=== PATIENT | male | born 1960 | race Caucasian/White ===

== ENCOUNTER 2019-03-11 17:42 | Emergency (ER) | payer OTHER, SELFPAY ==
[2019-03-11 17:46] VITALS: BP 144/83; PULSE 63; RESP 18; TEMP 36.7; O2SAT 92; BMI 33.2
--- NOTE | 2019-03-11 18:03 | ED.SEIZURE ---
HPI - Seizure <Shanice Matthews MD - Last Filed: 03/12/19 20:07> General Chief Complaint: Seizure Stated Complaint: Seizure, fatigue Time Seen by Provider: 03/11/19 17:45 Source: patient and EMS Mode of arrival: EMS History of Present Illness HPI Narrative: Patient is brought to the emergency department for seizure-like activity witnessed by his family at home. Patient does not have any recollection of the event. He states he did wake up feeling somewhat nauseated and does not remember feeling nauseated yesterday. He denies any recent head injury. he has possibly had 1 other seizure episode many many years ago, but none since. He does not take any medications for seizures. 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 Patient denies any weakness, numbness, or tingling. No vomiting. No fevers or chills. No cough, chest pain, or shortness of breath. No other complaints at this time. Patient's , who witnessed the episode, is EN route to the hospital, according to medics. Related Data Allergies Allergy/AdvReac Type Severity Reaction Status Date / Time No Known Drug Allergies Allergy Verified 03/11/19 17:46 Review of Systems <Shanice Matthews MD - Last Filed: 03/12/19 20:07> Review of Systems ROS Unobtainable: All systems reviewed & are unremarkable except as noted in HPI and below Constitutional Constitutional: Denies chills, Denies fatigue, Denies fever(s), Denies frequent falls, Denies lethargy and Denies weakness Eyes Eyes: Denies change in vision, Denies eye discharge, Denies irritation and Denies loss of vision ENT Ears, Nose, Mouth, and Throat: Denies change in voice, Denies dizziness, Denies neck pain, Denies sore throat and Denies throat swelling Cardiovascular Cardiovascular: Denies chest pain, Denies irregular heart rhythm, Denies lightheadedness, Denies palpitations, Denies dyspnea, Denies dyspnea on exertion and Denies orthopnea Respiratory Respiratory: Denies cough, Denies dyspnea, Denies dyspnea on exertion and Denies wheezing Gastrointestinal Gastrointestinal: Denies abdominal pain, Denies change in bowel habits, Denies diarrhea, Reports nausea and Denies vomiting Genitourinary Genitourinary: Denies hematuria, Denies flank pain, Denies urinary incontinence and Denies urinary urgency Musculoskeletal Musculoskeletal: Denies back pain, Denies muscle weakness, Denies neck pain, Denies numbness and Denies tingling Integumentary/Breasts Skin/Breast: Denies pruritus, Denies erythema, Denies rash and Denies wounds Neurologic Neurologic: Denies behavioral changes, Denies confusion, Denies dizziness, Denies frequent falls, Denies loss of vision, Denies numbness, Denies tingling and Denies weakness Psychiatric Psychiatric: Denies anxiety, Denies behavioral changes, Denies confusion, Denies depression, Denies homicidal ideation and Denies suicidal ideation Endocrine Endocrine: Denies fatigue, Denies flushing and Denies palpitations Hematologic/Lymphatic Hematologic/Lymphatic: Denies easy bruising Allergic/Immunologic Allergic/Immunologic: Denies urticaria, Denies throat swelling and Denies wheezing Patient History <Shanice Matthews MD - Last Filed: 03/12/19 20:07> Medical History Leukemia (Acute) Social History (Updated 03/11/19 @ 18:08 by Shanice Matthews MD) Smoking Status: Unknown if ever smoked Exam <Shanice Matthews MD - Last Filed: 03/12/19 20:07> Initial Vital Signs Initial Vital Signs: Vital Signs Temperature 98.0 F 03/11/19 17:46 Pulse Rate 63 03/11/19 17:46 Respiratory Rate 18 03/11/19 17:46 Blood Pressure 144/83 H 03/11/19 17:46 Pulse Oximetry 92 03/11/19 17:46 Const General: cooperative and well developed Nutritional Appearance: well nourished Orientation: alert, awake, oriented x3 and not confused [facility] Head: normocephalic and atraumatic Ears: external ears normal Nose: external nose normal and No nasal discharge Face and sinus: face symmetric and No dry mucous membranes Mouth: oral mucosae normal and moist mucous membranes Teeth and gingiva: dentition normal Eyes General: appearance normal, both eyes and all related structures Eyelids: eyelids normal Conjunctivae: conjunctivae normal Sclera: sclerae normal Pupils: PERRL EOM: EOM intact bilaterally Neck Neck: normal visual inspection, trachea midline, No lymphadenopathy, No midline deformity and No JVD Lymphatic: No lymphedema Chest Chest: normal inspection of the chest Resp Effort & Inspection: normal respiratory effort, able to speak in complete sentences, no respiratory distress and no use of accessory muscles Auscultation: clear to auscultation bilaterally, no rales, no rhonchi and no wheezes Cardio Rate: regular rate Rhythm: regular rhythm Heart Sounds: no click, no gallops, no murmurs and no rubs Pulses: normal peripheral pulses GI Inspection: non-distended Palpation: soft, no hepatosplenomegaly, No guarding, No pulsatile mass and No tender Auscultation: normal bowel sounds Back/Spine/Pelvis Back: No CVA tenderness Cervical Spine: cervical ROM normal and No pain with cervical ROM Thoracic/Lumbar Spine: thoracic and lumbar spine normal to inspection Skin General: no rashes or lesions noted, No jaundice and No petechiae Neuro General: alert, oriented x3, gait normal and no focal motor deficits Speech: speech normal Extrem General: full ROM, no clubbing, cyanosis or edema, no pedal edema and no calf tenderness Psych Appearance: well kempt Mental Status: mental status grossly normal Attitude: cooperative Thought Content: normal and suicidality Judgment: judgment good <Alberto Callahan DO - Last Filed: 03/11/19 22:53> Initial Vital Signs Initial Vital Signs: Vital Signs Temperature 98.0 F 03/11/19 17:46 Pulse Rate 63 03/11/19 17:46 Respiratory Rate 18 03/11/19 17:46 Blood Pressure 144/83 H 03/11/19 17:46 Pulse Oximetry 92 03/11/19 17:46 Course <Shanice Matthews MD - Last Filed: 03/12/19 20:07> Course Course Narrative: Patient was evaluated by myself upon arrival with the medics. IV was placed and patient was started on IV fluids as well as worked up with CBC, CMP drug screen, alcohol, urinalysis and head CT to evaluate his possible seizure activity. Patient was signed out to Dr. Callahan, pending results of workup. Orders Ordered: Discontinued Medications Sodium Chloride (Normal Saline 0.9%) 1,000 mls @ 1,000 mls/hr IV BOLUS ONE Stop: 03/11/19 19:02 Last Admin: 03/11/19 19:07 Dose: 1,000 mls/hr Documented by: CPRUITT Ondansetron HCl (Zofran) 4 mg IV NOW ONE Stop: 03/11/19 18:04 Last Admin: 03/11/19 19:07 Dose: 4 mg Documented by: ADRY Vital Signs Vital signs: Vital Signs - 8 hr 03/11/19 17:46 03/11/19 18:57 03/11/19 19:59 Temperature 98.0 F Pulse Rate 63 49 L 55 L Respiratory Rate 18 12 18 Blood Pressure 144/83 H Blood Pressure [Right Arm] 157/79 H 166/73 H Pulse Oximetry 92 99 97 03/11/19 20:15 Temperature Pulse Rate 52 L Respiratory Rate 12 Blood Pressure 158/68 H Blood Pressure [Right Arm] Pulse Oximetry 95 <Alberto Callahan DO - Last Filed: 03/11/19 22:53> Orders Ordered: Discontinued Medications Sodium Chloride (Normal Saline 0.9%) 1,000 mls @ 1,000 mls/hr IV BOLUS ONE Stop: 03/11/19 19:02 Last Admin: 03/11/19 19:07 Dose: 1,000 mls/hr Documented by: ADRY Ondansetron HCl (Zofran) 4 mg IV NOW ONE Stop: 03/11/19 18:04 Last Admin: 03/11/19 19:07 Dose: 4 mg Documented by: ADRY Vital Signs Vital signs: Vital Signs - 8 hr 03/11/19 17:46 03/11/19 18:57 03/11/19 19:59 Temperature 98.0 F Pulse Rate 63 49 L 55 L Respiratory Rate 18 12 18 Blood Pressure 144/83 H Blood Pressure [Right Arm] 157/79 H 166/73 H Pulse Oximetry 92 99 97 03/11/19 20:15 Temperature Pulse Rate 52 L Respiratory Rate 12 Blood Pressure 158/68 H Blood Pressure [Right Arm] Pulse Oximetry 95 MDM - Seizure <Shanice Matthews MD - Last Filed: 03/12/19 20:07> Lab Data Result diagrams: 03/11/19 18:14 03/11/19 18:14 Labs: Lab Results 03/11/19 03/11/19 03/11/19 Range/Units 18:14 18:14 18:14 WBC 2.2 L (4.5-11.0) X10^3/uL RBC 3.99 L (4.5-5.9) X10^6/uL Hgb 13.4 L (13.5-17.5) g/dL Hct 39.1 L (41-53) % MCV 98.1 (80-100) fL MCH 33.7 (26-34) PG MCHC 34.3 (30-36) % RDW 15.9 H (11.6-14.8) % Plt Count 46 L (150-400) X10^3/uL Neut % (Auto) Not Reportable Lymph % (Auto) Not Reportable [place] % (Auto) Not Reportable Eos % (Auto) Not Reportable Baso % (Auto) Not Reportable Lymph # (Auto) Not Reportable [place] # (Auto) Not Reportable Baso # (Auto) Not Reportable Total Counted 100 Seg Neutrophils % 66.0 (38-70) % Band Neutrophils % 2.0 L (3-7) % Lymphocytes % (Manual) 20.0 L (25-45) % Atypical Lymphs % 4.0 H ( - 0) % Monocytes % (Manual) 8.0 (2-11) % Neutrophils # (Manual) 1496 L (7330-6557) /uL Platelet Estimate Decreased on smear RBC Morphology Normal morphology PT 12.0 (10.1-12.7) SECONDS INR 1.0 (0.9-1.3) Sodium 136 L (137-145) mmol/L Potassium 5.0 (3.4-5.1) mmol/L Chloride 97 L (98-107) mmol/L Carbon Dioxide 29 (22-32) mmol/L BUN 16 (9-20) mg/dL Creatinine 1.00 (0.66-1.25) mg/dL Estimated GFR > 60.0 (>60) mL/min BUN/Creatinine Ratio 16.0 (6-22) Glucose 98 (70-100) mg/dL Calcium 9.5 (8.4-10.2) mg/dL Total Bilirubin 1.8 H (0.2-1.3) mg/dL AST 29 (17-59) IU/L ALT 21 (<50) IU/L Alkaline Phosphatase 92 (38-126) U/L Total Protein 6.7 (6.3-8.2) g/dL Albumin 4.6 (3.5-5.0) g/dL Globulin 2.1 (1.7-4.1) g/dL Albumin/Globulin Ratio 2.2 (1.0-2.8) Prolactin (3.7-17.9) ng/mL Urine Color Urine Appearance Urine pH (4.5-8.0) Ur Specific [place] (1.000-1.035) Urine Protein (Negative) Urine Glucose (UA) (Negative) g/dL Urine Ketones (NEGATIVE) Urine Occult Blood (Negative) Urine Nitrate (Negative) Urine Bilirubin (NEGATIVE) Urine Urobilinogen (0.2) E.U./dL Ur Leukocyte Esterase (NEGATIVE) Urine RBC (0-5/HPF) Urine WBC (0-5/HPF) Urine Bacteria (None) Ur Culture Indicated? U Morph 300 ng/mL cutoff (Negative) Ur Oxycodone Screen (Negative) Urine Methadone Screen (Negative) Ur Barbiturates Screen (Negative) U Tricyclic Antidepress (Negative) Ur Phencyclidine Scrn (Negative) Ur Amphetamines Screen (Negative) U Methamphetamines Scrn (Negative) Ur MDMA Scrn (Ecstasy) (Negative) U Benzodiazepines Scrn (Negative) Urine Cocaine Screen (Negative) U Marijuana (THC) Screen (Negative) 03/11/19 03/11/19 03/11/19 Range/Units 18:14 19:01 19:01 WBC (4.5-11.0) X10^3/uL RBC (4.5-5.9) X10^6/uL Hgb (13.5-17.5) g/dL Hct (41-53) % MCV (80-100) fL MCH (26-34) PG MCHC (30-36) % RDW (11.6-14.8) % Plt Count (150-400) X10^3/uL Neut % (Auto) Lymph % (Auto) [place] % (Auto) Eos % (Auto) Baso % (Auto) Lymph # (Auto) [place] # (Auto) Baso # (Auto) Total Counted Seg Neutrophils % (38-70) % Band Neutrophils % (3-7) % Lymphocytes % (Manual) (25-45) % Atypical Lymphs % ( - 0) % Monocytes % (Manual) (2-11) % Neutrophils # (Manual) (0491-5474) /uL Platelet Estimate RBC Morphology PT (10.1-12.7) SECONDS INR (0.9-1.3) Sodium (137-145) mmol/L Potassium (3.4-5.1) mmol/L Chloride (98-107) mmol/L Carbon Dioxide (22-32) mmol/L BUN (9-20) mg/dL Creatinine (0.66-1.25) mg/dL Estimated GFR (>60) mL/min BUN/Creatinine Ratio (6-22) Glucose (70-100) mg/dL Calcium (8.4-10.2) mg/dL Total Bilirubin (0.2-1.3) mg/dL AST (17-59) IU/L ALT (<50) IU/L Alkaline Phosphatase (38-126) U/L Total Protein (6.3-8.2) g/dL Albumin (3.5-5.0) g/dL Globulin (1.7-4.1) g/dL Albumin/Globulin Ratio (1.0-2.8) Prolactin 26.9 H (3.7-17.9) ng/mL Urine Color Yellow Urine Appearance Clear Urine pH 6.5 (4.5-8.0) Ur Specific [place] 1.015 (1.000-1.035) Urine Protein 1+ H (Negative) Urine Glucose (UA) Negative (Negative) g/dL Urine Ketones Negative (NEGATIVE) Urine Occult Blood Trace-lysed (Negative) Urine Nitrate Negative (Negative) Urine Bilirubin Negative (NEGATIVE) Urine Urobilinogen 0.2 (0.2) E.U./dL Ur Leukocyte Esterase Negative (NEGATIVE) Urine RBC None seen (0-5/HPF) Urine WBC 0-1/hpf (0-5/HPF) Urine Bacteria None seen (None) Ur Culture Indicated? Cult not indicated U Morph 300 ng/mL cutoff Positive H (Negative) Ur Oxycodone Screen Positive H (Negative) Urine Methadone Screen Negative (Negative) Ur Barbiturates Screen Negative (Negative) U Tricyclic Antidepress Negative (Negative) Ur Phencyclidine Scrn Negative (Negative) Ur Amphetamines Screen Negative (Negative) U Methamphetamines Scrn Negative (Negative) Ur MDMA Scrn (Ecstasy) Negative (Negative) U Benzodiazepines Scrn Negative (Negative) Urine Cocaine Screen Negative (Negative) U Marijuana (THC) Screen Negative (Negative) Point of Care Testing Glucose POC 116 <Alberto Lanker, DO - Last Filed: 03/11/19 22:53> Lab Data Attestation: I reviewed the patient's lab results. Labs: Lab Results 03/11/19 03/11/19 03/11/19 Range/Units 18:14 18:14 18:14 WBC 2.2 L (4.5-11.0) X10^3/uL RBC 3.99 L (4.5-5.9) X10^6/uL Hgb 13.4 L (13.5-17.5) g/dL Hct 39.1 L (41-53) % MCV 98.1 (80-100) fL MCH 33.7 (26-34) PG MCHC 34.3 (30-36) % RDW 15.9 H (11.6-14.8) % Plt Count 46 L (150-400) X10^3/uL Neut % (Auto) Not Reportable Lymph % (Auto) Not Reportable [place] % (Auto) Not Reportable Eos % (Auto) Not Reportable Baso % (Auto) Not Reportable Lymph # (Auto) Not Reportable [place] # (Auto) Not Reportable Baso # (Auto) Not Reportable Total Counted 100 Seg Neutrophils % 66.0 (38-70) % Band Neutrophils % 2.0 L (3-7) % Lymphocytes % (Manual) 20.0 L (25-45) % Atypical Lymphs % 4.0 H ( - 0) % Monocytes % (Manual) 8.0 (2-11) % Neutrophils # (Manual) 1496 L (7912-1631) /uL Platelet Estimate Decreased on smear RBC Morphology Normal morphology PT 12.0 (10.1-12.7) SECONDS INR 1.0 (0.9-1.3) Sodium 136 L (137-145) mmol/L Potassium 5.0 (3.4-5.1) mmol/L Chloride 97 L (98-107) mmol/L Carbon Dioxide 29 (22-32) mmol/L BUN 16 (9-20) mg/dL Creatinine 1.00 (0.66-1.25) mg/dL Estimated GFR > 60.0 (>60) mL/min BUN/Creatinine Ratio 16.0 (6-22) Glucose 98 (70-100) mg/dL Calcium 9.5 (8.4-10.2) mg/dL Total Bilirubin 1.8 H (0.2-1.3) mg/dL AST 29 (17-59) IU/L ALT 21 (<50) IU/L Alkaline Phosphatase 92 (38-126) U/L Total Protein 6.7 (6.3-8.2) g/dL Albumin 4.6 (3.5-5.0) g/dL Globulin 2.1 (1.7-4.1) g/dL Albumin/Globulin Ratio 2.2 (1.0-2.8) Prolactin (3.7-17.9) ng/mL Urine Color Urine Appearance Urine pH (4.5-8.0) Ur Specific [place] (1.000-1.035) Urine Protein (Negative) Urine Glucose (UA) (Negative) g/dL Urine Ketones (NEGATIVE) Urine Occult Blood (Negative) Urine Nitrate (Negative) Urine Bilirubin (NEGATIVE) Urine Urobilinogen (0.2) E.U./dL Ur Leukocyte Esterase (NEGATIVE) Urine RBC (0-5/HPF) Urine WBC (0-5/HPF) Urine Bacteria (None) Ur Culture Indicated? U Morph 300 ng/mL cutoff (Negative) Ur Oxycodone Screen (Negative) Urine Methadone Screen (Negative) Ur Barbiturates Screen (Negative) U Tricyclic Antidepress (Negative) Ur Phencyclidine Scrn (Negative) Ur Amphetamines Screen (Negative) U Methamphetamines Scrn (Negative) Ur MDMA Scrn (Ecstasy) (Negative) U Benzodiazepines Scrn (Negative) Urine Cocaine Screen (Negative) U Marijuana (THC) Screen (Negative) 03/11/19 03/11/19 03/11/19 Range/Units 18:14 19:01 19:01 WBC (4.5-11.0) X10^3/uL RBC (4.5-5.9) X10^6/uL Hgb (13.5-17.5) g/dL Hct (41-53) % MCV (80-100) fL MCH (26-34) PG MCHC (30-36) % RDW (11.6-14.8) % Plt Count (150-400) X10^3/uL Neut % (Auto) Lymph % (Auto) [place] % (Auto) Eos % (Auto) Baso % (Auto) Lymph # (Auto) [place] # (Auto) Baso # (Auto) Total Counted Seg Neutrophils % (38-70) % Band Neutrophils % (3-7) % Lymphocytes % (Manual) (25-45) % Atypical Lymphs % ( - 0) % Monocytes % (Manual) (2-11) % Neutrophils # (Manual) (1884-9375) /uL Platelet Estimate RBC Morphology PT (10.1-12.7) SECONDS INR (0.9-1.3) Sodium (137-145) mmol/L Potassium (3.4-5.1) mmol/L Chloride (98-107) mmol/L Carbon Dioxide (22-32) mmol/L BUN (9-20) mg/dL Creatinine (0.66-1.25) mg/dL Estimated GFR (>60) mL/min BUN/Creatinine Ratio (6-22) Glucose (70-100) mg/dL Calcium (8.4-10.2) mg/dL Total Bilirubin (0.2-1.3) mg/dL AST (17-59) IU/L ALT (<50) IU/L Alkaline Phosphatase (38-126) U/L Total Protein (6.3-8.2) g/dL Albumin (3.5-5.0) g/dL Globulin (1.7-4.1) g/dL Albumin/Globulin Ratio (1.0-2.8) Prolactin 26.9 H (3.7-17.9) ng/mL Urine Color Yellow Urine Appearance Clear Urine pH 6.5 (4.5-8.0) Ur Specific [place] 1.015 (1.000-1.035) Urine Protein 1+ H (Negative) Urine Glucose (UA) Negative (Negative) g/dL Urine Ketones Negative (NEGATIVE) Urine Occult Blood Trace-lysed (Negative) Urine Nitrate Negative (Negative) Urine Bilirubin Negative (NEGATIVE) Urine Urobilinogen 0.2 (0.2) E.U./dL Ur Leukocyte Esterase Negative (NEGATIVE) Urine RBC None seen (0-5/HPF) Urine WBC 0-1/hpf (0-5/HPF) Urine Bacteria None seen (None) Ur Culture Indicated? Cult not indicated U Morph 300 ng/mL cutoff Positive H (Negative) Ur Oxycodone Screen Positive H (Negative) Urine Methadone Screen Negative (Negative) Ur Barbiturates Screen Negative (Negative) U Tricyclic Antidepress Negative (Negative) Ur Phencyclidine Scrn Negative (Negative) Ur Amphetamines Screen Negative (Negative) U Methamphetamines Scrn Negative (Negative) Ur MDMA Scrn (Ecstasy) Negative (Negative) U Benzodiazepines Scrn Negative (Negative) Urine Cocaine Screen Negative (Negative) U Marijuana (THC) Screen Negative (Negative) Point of Care Testing Glucose POC [address] scan - head: Radiologist's impression: [address] [address] [address] Scan Report Signed Patient: Tamir Nowak LMR#: [id number] : 1960Acct:[id number] Age/Sex: 58 / MDate of Service: 03/11/19 Loc: ED Accession Number: [id number] Procedure: CT head/brain wo con Ordering Provider: Shanice Matthews MD PROCEDURE: CT HEAD/BRAIN WO CON INDICATIONS: seizure TECHNIQUE: Noncontrast 4.5 mm thick angled axial sections acquired from the foramen magnum to the vertex, with coronal and sagittal reformats. For radiation dose reduction, the following was used: automated exposure control, adjustment of mA and/or kV according to patient size. COMPARISON: None. FINDINGS: Image quality: Excellent. CSF spaces: Basal cisterns are patent. No extra-axial fluid collections. Ventricles are normal in size and shape. Brain: No midline shift. No intracranial masses or hemorrhage. [place]-white matter interface is normal. Skull and face: Calvarium and visualized facial bones are intact, without suspicious lesions. Sinuses: Visualized sinuses and mastoids are clear. IMPRESSION: 1. No acute intracranial process. Dictated by: Nataly Lopez M.D. on 03/11/2019 at 18:40 Approved by: Nataly Lopez M.D. on 03/11/2019 at 18:41 [facility] Narrative Medical decision making narrative: Received turned over. Review patient's history and physical. Perform my own independent exam. Patient's history and physical is consistent with a seizure. He was postictal afterwards. Patient states that when he arrived here he noticed that he had urinated on himself. He did not bite his tongue. His workup here in the emergency department unremarkable. I do have low suspicion that his symptoms today were caused by any of the prior infections that he is having. It sounds like he potentially has had a seizure about 10 years ago. Has never had any workup. Unsure what prompted the seizure activity today. Patient states that just prior he felt very nauseous and received some nausea medication from his . I did inform him that he cannot drive until he is cleared by his primary doctor or neurology. He was instructed to contact his primary doctor to discuss referral to see neurology. Will hold on starting any anti seizure medications today. He was given return precautions and follow-up instructions. He expressed understanding and agreement with plan. Discharge Plan Departure Patient Disposition: Home Clinical Impression: Seizure-like activity Discharge Date/Time: 03/11/19 20:15 Instructions: DI for Seizure Disorder -- Adult Activity Restrictions/Additional Instructions: No driving until your cleared by your primary doctor or a neurologist. Tomorrow contact your primary doctor to get a referral to see a neurologist to discuss the indications for an EEG. Continue all of your medications as directed. Return to the emergency department for any new or worsening symptoms Referrals: Johnny Varela [Primary Care Provider] -
[2019-03-11 18:27] LABS: Hematocrit 39.1 % (41-53); Hemoglobin 13.4 g/dL (13.5-17.5); Mean Corpuscular HGB Conc 34.3 % (30-36); Mean Corpuscular Hemoglobin 33.7 PG (26-34); Mean Corpuscular Volume 98.1 fL (80-100); Platelet Count 46 X10^3/uL (150-400); Red Blood Cell Count 3.99 X10^6/uL (4.5-5.9); Red Cell Distribution Width 15.9 % (11.6-14.8); White Blood Cell Count 2.2 X10^3/uL (4.5-11.0)
[2019-03-11 18:31] LABS: Add Manual Diff / Slide Review YES
[2019-03-11 18:36] LABS: Alanine Aminotransferase 21 IU/L (<50); Albumin 4.6 g/dL (3.5-5.0); Albumin Globulin Ratio 2.2 (1.0-2.8); Alkaline Phosphatase 92 U/L (38-126); Aspartate Aminotransferase 29 IU/L (17-59); Bilirubin Total 1.8 mg/dL (0.2-1.3); Blood Urea Nitrogen 16 mg/dL (9-20); Calcium 9.5 mg/dL (8.4-10.2); Carbon Dioxide 29 mmol/L (22-32); Chloride 97 mmol/L (98-107); Estimated Glomerular Filt Rate > 60.0 mL/min (>60); Globulin 2.1 g/dL (1.7-4.1); Glucose 98 mg/dL (70-100); HEMOLYSIS < 15 (0-50); Sodium 136 mmol/L (137-145); Total Protein 6.7 g/dL (6.3-8.2)
[2019-03-11 18:57] VITALS: BP 157/79; PULSE 49; RESP 12; O2SAT 99
[2019-03-11 19:02] LABS: Bacteria Urine None Seen; RBC Urine None Seen (0-5/HPF)
[2019-03-11 19:05] LABS: Appearance Urine UA CLEAR; Bilirubin Urine UA NEGATIVE (NEGATIVE); Color Urine UA YELLOW; Glucose Urine UA NEGATIVE (Negative); Ketones Urine UA NEGATIVE (NEGATIVE); Leukocyte Esterase Urine UA NEGATIVE (NEGATIVE); Nitrite Urine UA NEGATIVE (Negative); Occult Blood Urine UA TRACE-LYSED (Negative); Protein Urine UA 1+ (Negative); Specific Gravity Urine UA 1.015 (1.000-1.035); Urobilinogen Urine UA 0.2 E.U./dL (0.2); pH Urine UA 6.5 (4.5-8.0)
[2019-03-11] MEDS: SODIUM CHLORIDE 0.9% 1,000 ML 1000 ML IV (19:07)
[2019-03-11] MEDS: ONDANSETRON 4 MG/2 ML INJ IV (19:07)
[2019-03-11 19:10] LABS: UR Morphine/Opiate cutoff 300 Positive (Negative); Ur Creatinine 50 (Normal); Ur Specific Gravity 1.015 (Normal); Urine Amphetamines Negative (Negative); Urine Barbiturates Negative (Negative); Urine Benzodiazepines Negative (Negative); Urine Cocaine Negative (Negative); Urine MDMA Negative (Negative); Urine Methadone Negative (Negative); Urine Methamphetamines Negative (Negative); Urine Oxycodone Positive (Negative); Urine Phencyclidine Negative (Negative); Urine Tetrahydrocannabinol Negative (Negative); Urine Tricyclic Antidepressant Negative (Negative); Urine pH 7 (Normal)
[2019-03-11 19:13] LABS: Neutrophils Absolute Manual 1496 /uL (3000-5900); Platelet Estimate Decreased on smear; RBC Morphology Normal Morphology; Total Cells Counted 100
[2019-03-11 19:26] LABS: Culture Indicated Urine Cult Not Indicated; WBC Urine 0-1/HPF (0-5/HPF)
[2019-03-11 19:27] LABS: Prolactin 26.9 ng/mL (3.7-17.9)
[2019-03-11 19:59] VITALS: BP 166/73; PULSE 55; RESP 18; O2SAT 97
[2019-03-11 20:15] VITALS: BP 158/68; PULSE 52; RESP 12; O2SAT 95
--- NOTE | 2019-06-08 15:46 | PC.NURSE ---
late entry, per [facility], patient's IVF of NS stopped at 2004 with 1000ml infused
== END 2019-03-11 20:15 | disposition home or self-care (01) ==
PROVIDERS: Emergency Medicine; Emergency Provider Emergency Medicine; PCP Physician Assistant Medical
DX: R56.9 Unspecified convulsions (principal); R79.89 Other specified abnormal findings of blood chemistry
CPT/HCPCS: 70450; 80053; 80305; 81001; 84146; 85025; 85610; 96361; 96374; 99282; 99284; J2405

== ENCOUNTER 2021-06-01 18:59 | Emergency (ER) | payer OTHER, SELFPAY ==
[2021-06-01 19:00] VITALS: BP 163/87; PULSE 85; RESP 14; TEMP 36.9; O2SAT 99; BMI 33.2
--- NOTE | 2021-06-01 21:22 | PC.NURSE ---
Pt asked to speak to nurse at registration. Very upset about wait. Discussed triage and that there is no list in order. He states he was told he was going to be seen within 60 min by triage nurse. I told him that I had been present during his triage and that he was told that we took people in order of triage / need. He became more upset. I again reinforced that he would be seen but that we had to take care of the most ill pt first. he went back to wait in his car.
--- NOTE | 2021-06-01 21:56 | PC.NURSE ---
right ear infection since 05/19/21 on abx no relief, pt reports new bleeding onset today
[2021-06-02] VITALS (9 sets, daily range): BP systolic 146–210; BP diastolic 78–97; PULSE 51–70; RESP 18–20; O2SAT 92–99
[2021-06-02] MEDS: ACETAMINOPHEN 325 MG TABLET 650 MG PO (00:26)
--- NOTE | 2021-06-02 01:03 | ED_ITS ---
HPI - Ear Problem <Karine Slater DO - Last Filed: 06/03/21 04:11> General Chief complaint: Ear Stated complaint: RT EAR INFECTION PAIN BLEEDING Time Seen by Provider: 06/02/21 01:02 Source: patient Mode of arrival: Ambulatory Limitations: no limitations History of Present Illness HPI Narrative: This is a 61-year-old male comes emergency department complaint of right ear infection. Patient states he started having symptoms around May 21. He is unsure of the name of the 1st antibiotic ear drop he was given. He thinks it may have been Polytrim. Patient was then seen locally on the he was started on Augmentin and then had a Floxin ear drops added. He has not had any improvement since then. He noted some blood today after using a heat pack against the ear. He has had persistent pain. He states he has a history of leukemia he is on amoxicillin daily secondary to what he describes is likely an aortitis and had prior aortic stent and patch to that area. 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 Patient states he is concerned as he has not had any improvement or in his infection or pain since the 21 of May because of this past history. He follows with Dr. Multani with oncology in [facility]. Dr. Phoenix is his primary care physician. He denies any drug allergies. Patient is also quite frustrated that he has not been given stronger pain medications he was given Percocet which he states was not helpful. He normally takes oxycodone daily and extended release morphine for chronic pain. Related Data Allergies Allergy/AdvReac Type Severity Reaction Status Date / Time No Known Drug Allergies Allergy Verified 06/01/21 19:21 Review of Systems <Karine Slater DO - Last Filed: 06/03/21 04:11> Review of Systems ROS Unobtainable: All systems reviewed & are unremarkable except as noted in HPI and below Patient History <Karine Slater DO - Last Filed: 06/03/21 04:11> Medical History (Updated 06/02/21 @ 06:19 by Karine Slater DO) Leukemia Social History Smoking Status: Unknown if ever smoked Smoking Status: Unknown if ever smoked Substance Use Type: does not use Exam <Karine Slater DO - Last Filed: 06/03/21 04:11> Narrative Exam Narrative: GEN: well nourished, well appearing male, alert and oriented x 3, patient appears to be in mild distress. HEENT: Atraumatic, pupils are equal round reactive to light, extraocular movements are intact, nares are clear, left TM is clear with no fluid, retracted with scarring consistent with prior infection, I am unable to visualize the right TM there is swelling of the canal that is erythematous, the in itself is not swollen, patient has mild tenderness at the tragus but not of the ear itself. He has mild swelling of the right cheek. No submandibular or anterior chain lymphadenopathy per appreciated. No conjunctival pallor. Throat is clear without any exudates, erythema, tonsillar enlargement or uvular deviation HEART: Regular rate and rhythm without murmur, clicks, rubs. LUNGS:Lungs clear to auscultation, no wheezes, rales, crackles, chest moves symmetrically ABD:bowel sounds normal, soft, non-tender, no guarding, rebound, rigidity, no masses noted, no hepatosplenomegaly MSCL: Non-tender, no muscle atrophy, muscles strength 5/5 upper and lower extremities, full range of motion, normal gait NEURO:CN 2-12 intact, sensation normal. SKIN: No erythema, or other rashes noted. Initial Vital Signs Initial Vital Signs: Vital Signs Temperature 98.4 F 06/01/21 19:00 Pulse Rate 85 06/01/21 19:00 Respiratory Rate 14 06/01/21 19:00 Blood Pressure 163/87 H 06/01/21 19:00 Pulse Oximetry 99 06/01/21 19:00 <Will Caballero DO - Last Filed: 06/02/21 19:08> Initial Vital Signs Initial Vital Signs: Vital Signs Temperature 98.4 F 06/01/21 19:00 Pulse Rate 85 06/01/21 19:00 Respiratory Rate 14 06/01/21 19:00 Blood Pressure 163/87 H 06/01/21 19:00 Pulse Oximetry 99 06/01/21 19:00 Course <Karine Slater DO - Last Filed: 06/03/21 04:11> Orders Ordered: Discontinued Medications Acetaminophen (Acetaminophen 325 Mg Tablet) 650 mg PO NOW ONE Stop: 06/02/21 00:19 Last Admin: 06/02/21 00:26 Dose: 650 mg Documented by: CHAZ Hydromorphone HCl (Hydromorphone 1 Mg Inj) 1 mg IV NOW ONE Stop: 06/02/21 02:41 Last Admin: 06/02/21 02:54 Dose: 1 mg Documented by: ROSA MARIA Hydromorphone HCl (Hydromorphone 1 Mg Inj) 1 mg IV NOW ONE Stop: 06/02/21 04:57 Last Admin: 06/02/21 05:01 Dose: 1 mg Documented by: SIMEON Hydromorphone HCl (Hydromorphone 1 Mg Inj) 1 mg IV NOW ONE Stop: 06/02/21 07:59 Last Admin: 06/02/21 08:02 Dose: 1 mg Documented by: JASPREET Cefepime HCl 2 gm/ Sodium (Chloride) 100 mls @ 200 mls/hr IV NOW ONE Stop: 06/02/21 01:37 Last Infusion: 06/02/21 02:35 Dose: 0 mls/hr Documented by: ROSA MARIA Admin: 06/02/21 01:45 Dose: 200 mls/hr Documented by: ROSA MARIA Ciprofloxacin (Cipro) 400 mg in 200 mls @ 200 mls/hr IV NOW ONE Stop: 06/02/21 07:56 Last Infusion: 06/02/21 08:45 Dose: 0 mls/hr Documented by: Admin: 06/02/21 07:49 Dose: 200 mls/hr Documented by: JASPREET Ketorolac Tromethamine (Ketorolac 30 Mg/Ml Vial) 30 mg IV NOW ONE Stop: 06/02/21 03:36 Last Admin: 06/02/21 03:43 Dose: 30 mg Documented by: SIMEON Morphine Sulfate (Morphine 4 Mg/Ml Inj) 4 mg IV NOW ONE Stop: 06/02/21 01:31 Last Admin: 06/02/21 01:45 Dose: 4 mg Documented by: ROSA MARIA Reevaluation(s) Reevaluation #1: Patient updated of CT findings and preference for ENT to see patient for final decision. Patient is frustrated by long stay but agreeable at this time. Toradol was helpful for pain but cannot be repeated yet. Consultations Consultation #1: Dr. Harsh Miles, recomends Dr. Centeno to see in the ED this morning. Likely after 630am/7am for decision to admit vs. transfer. Awaiting callback from Dr. Centeno regarding plan to be seen today. Vital Signs Vital signs: Vital Signs - 8 hr 06/01/21 19:00 Temperature 98.4 F Pulse Rate 85 Respiratory Rate 14 Blood Pressure 163/87 H Pulse Oximetry 99 <Will Caballero, DO - Last Filed: 06/02/21 19:08> Orders Ordered: Discontinued Medications Acetaminophen (Acetaminophen 325 Mg Tablet) 650 mg PO NOW ONE Stop: 06/02/21 00:19 Last Admin: 06/02/21 00:26 Dose: 650 mg Documented by: CHAZ Hydromorphone HCl (Hydromorphone 1 Mg Inj) 1 mg IV NOW ONE Stop: 06/02/21 02:41 Last Admin: 06/02/21 02:54 Dose: 1 mg Documented by: ROSA MARIA Hydromorphone HCl (Hydromorphone 1 Mg Inj) 1 mg IV NOW ONE Stop: 06/02/21 04:57 Last Admin: 06/02/21 05:01 Dose: 1 mg Documented by: SIMEON Hydromorphone HCl (Hydromorphone 1 Mg Inj) 1 mg IV NOW ONE Stop: 06/02/21 07:59 Last Admin: 06/02/21 08:02 Dose: 1 mg Documented by: JASPREET Cefepime HCl 2 gm/ Sodium (Chloride) 100 mls @ 200 mls/hr IV NOW ONE Stop: 06/02/21 01:37 Last Infusion: 06/02/21 02:35 Dose: 0 mls/hr Documented by: ROSA MARIA Admin: 06/02/21 01:45 Dose: 200 mls/hr Documented by: ROSA MARIA Ciprofloxacin (Cipro) 400 mg in 200 mls @ 200 mls/hr IV NOW ONE Stop: 06/02/21 07:56 Last Infusion: 06/02/21 08:45 Dose: 0 mls/hr Documented by: Admin: 06/02/21 07:49 Dose: 200 mls/hr Documented by: JASPREET Ketorolac Tromethamine (Ketorolac 30 Mg/Ml Vial) 30 mg IV NOW ONE Stop: 06/02/21 03:36 Last Admin: 06/02/21 03:43 Dose: 30 mg Documented by: SIMEON Morphine Sulfate (Morphine 4 Mg/Ml Inj) 4 mg IV NOW ONE Stop: 06/02/21 01:31 Last Admin: 06/02/21 01:45 Dose: 4 mg Documented by: ROSA MARIA Vital Signs Vital signs: Vital Signs - 8 hr 06/01/21 19:00 Temperature 98.4 F Pulse Rate 85 Respiratory Rate 14 Blood Pressure 163/87 H Pulse Oximetry 99 Medical Decision Making <Karine Slater DO - Last Filed: 06/03/21 04:11> Lab Data Result diagrams: 06/02/21 01:30 06/02/21 01:30 Labs: Lab Results 06/02/21 06/02/21 06/02/21 Range/Units 01:30 01:30 01:30 WBC 6.6 (4.5-11.0) X10^3/uL RBC 5.19 (4.5-5.9) X10^6/uL Hgb 16.4 (13.5-17.5) g/dL Hct 46.8 (41-53) % MCV 90.3 (80-100) fL MCH 31.6 (26-34) PG MCHC 35.0 (30-36) % RDW 12.1 (11.6-14.8) % Plt Count 64 L (150-400) X10^3/uL Neut % (Auto) 60.1 (50-75) % Lymph % (Auto) 11.1 L (25-40) % Shelby % (Auto) 28.3 H (3-14) % Eos % (Auto) 0.3 L (2-4) % Baso % (Auto) 0.2 (0-2) % Neut # (Auto) 4000 (4080-2209) /uL Lymph # (Auto) 700 L (3837-8850) /uL Shelby # (Auto) 1900 H (0-900) /uL Eos # (Auto) 0 (0-450) /uL Baso # (Auto) 0 (0-100) /uL Sodium 139 (137-145) mmol/L Potassium 4.1 (3.4-5.1) mmol/L Chloride 103 (98-107) mmol/L Carbon Dioxide 28 (22-32) mmol/L BUN 13 (9-20) mg/dL Creatinine 0.97 (0.66-1.25) mg/dL Estimated GFR > 60.0 (>60) mL/min BUN/Creatinine Ratio 13.4 (6-22) Glucose 127 H (80-110) mg/dL Calcium 9.9 (8.4-10.2) mg/dL Procalcitonin 0.11 (<0.5) ng/mL Imaging Data CT soft tissue: Radiologist's Impression: Within right pre-auricular and infra-auricular regions extensive inflammatory changes in soft tissue mass likely phlegmon is change which extends into and includes the external auditory meatus. No aerodigestive tract mass identified. The parotid and submandibular glands are normal. The nasopharynx oropharynx and hypopharynx are normal. Focal drainable collection is identified. Nodular appearance of the thyroid gland dedicated thyroid ultrasound recommended. Ectasias ascending thoracic aorta measures 3.9 cm maximum AP dimension. MDM Narrative Medical decision making narrative: This is a 61-year-old male who comes in with persistent right ear/otitis media since the 21 of May. Patient has been on 2 different topical antibiotic drops for his ears as well as oral Augmentin. Patient has not had any improvement and had persistent pain. 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 Patient also had what he describes and sounds like an aortitis that requires him to continue amoxicillin oral daily and had a aortic stent and patch placed on that area. Patient is concerned that he may have developed a more serious infection and the reason why he has not improving. Patient does appear to have an otitis externa on exam, labs do not show any clear acute changes CT soft tissue head and neck was ordered based on patient's past history, his immunocompromise and persistent infection with appropriate antibiotics. There is a phlegmon exchange with extensive inflammatory and soft tissue masslike changes in the pre-auricular and in for regular regions consistent with patient's description of symptoms and exam and including the external auditory meatus. Patient was given dose of IV antibiotics, had some improvement with pain medications but not resolution, case was discussed with ENT who would like patient to be seen [id number] before decision to admit versus transfer or less likely outpatient follow-up after ENT intervention. Dr. Miles is on-call today but had into [facility] he is going to contact Dr. Leonard Centeno is who is covering this morning to see patient in ED, likely after 7am. Patient signed out to Dr. Caballero while awaiting final recommendations from ENT after face to face evaluation. <Will Caballero, DO - Last Filed: 06/02/21 19:08> Lab Data Labs: Lab Results 06/02/21 06/02/21 06/02/21 Range/Units 01:30 01:30 01:30 WBC 6.6 (4.5-11.0) X10^3/uL RBC 5.19 (4.5-5.9) X10^6/uL Hgb 16.4 (13.5-17.5) g/dL Hct 46.8 (41-53) % MCV 90.3 (80-100) fL MCH 31.6 (26-34) PG MCHC 35.0 (30-36) % RDW 12.1 (11.6-14.8) % Plt Count 64 L (150-400) X10^3/uL Neut % (Auto) 60.1 (50-75) % Lymph % (Auto) 11.1 L (25-40) % Shelby % (Auto) 28.3 H (3-14) % Eos % (Auto) 0.3 L (2-4) % Baso % (Auto) 0.2 (0-2) % Neut # (Auto) 4000 (4791-7082) /uL Lymph # (Auto) 700 L (1792-7064) /uL Shelby # (Auto) 1900 H (0-900) /uL Eos # (Auto) 0 (0-450) /uL Baso # (Auto) 0 (0-100) /uL Sodium 139 (137-145) mmol/L Potassium 4.1 (3.4-5.1) mmol/L Chloride 103 (98-107) mmol/L Carbon Dioxide 28 (22-32) mmol/L BUN 13 (9-20) mg/dL Creatinine 0.97 (0.66-1.25) mg/dL Estimated GFR > 60.0 (>60) mL/min BUN/Creatinine Ratio 13.4 (6-22) Glucose 127 H (80-110) mg/dL Calcium 9.9 (8.4-10.2) mg/dL Procalcitonin 0.11 (<0.5) ng/mL MDM Narrative Medical decision making narrative: This is a 61-year-old male who comes in with persistent right ear/otitis media since the 21 of May. Patient has been on 2 different topical antibiotic drops for his ears as well as oral Augmentin. Patient has not had any improvement and had persistent pain. 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 Patient also had what he describes and sounds like an aortitis that requires him to continue amoxicillin oral daily and had a aortic stent and patch placed on that area. Patient is concerned that he may have developed a more serious infection and the reason why he has not improving. Patient does appear to have an otitis externa on exam, labs do not show any clear acute changes CT soft tissue head and neck was ordered based on patient's past history, his immunocompromise and persistent infection with appropriate antibiotics. There is a phlegmon exchange with extensive inflammatory and soft tissue masslike changes in the pre-auricular and in for regular regions consistent with patient's description of symptoms and exam and including the external auditory meatus. Patient was given dose of IV antibiotics, had some improvement with pain medications but not resolution, case was discussed with ENT who would like patient to be seen [id number] before decision to admit versus transfer or less likely outpatient follow-up after ENT intervention. Dr. Miles is on-call today but had into [facility] he is going to contact Dr. Leonard Centeno is who is covering this morning to see patient in ED, likely after 7am. Patient signed out to Dr. Caballero while awaiting final recommendations from ENT after face to face evaluation. 0700 - (Patient received in sign-out from Dr. Slater. I reviewed the clinical course up until this point and performed an independent history and physical exam. ENT has called over and will see the patient in the office, request that we send patient over for final disposition. Patient is in agreement with and understands the plan Discharge Plan Departure Patient Disposition: Home Clinical Impression: Otitis externa, Phlegmon Instructions: DI for Otitis Externa Activity Restrictions/Additional Instructions: Cipro BID and cipro/dex? gtts. *You have been diagnosed with [complex otitis externa] *What to do: As we discussed, please proceed directly from the emergency department to [facility]. Directions have been given, they are not directly on the backside of the hospital, they are expecting you. Please do not eat or drink anything until you are seen Referrals: Harsh Miles MD [Physician] - Johnny Varela PA-C [Primary Care Provider] -
--- NOTE | 2021-06-02 01:30 | DI.CT.S_ITS ---
PROCEDURE: CT SOFT TISSUE NECK W CON INDICATIONS: right ear pain, persistent infx, leukemia, neck swelling TECHNIQUE: After the administration of intravenous contrast, 3.0 mm axial sections acquired from the sella to the aortic arch. Additional oblique axial 3.0 mm sections acquired through the pharynx. 3 mm thick coronal and sagittal reformats were generated. For radiation dose reduction, the following was used: automated exposure control. COMPARISON: None. FINDINGS: Image quality: Excellent. Lymph nodes: No enlarged lymph nodes seen throughout the neck. Vessels: Visualized vasculature appears patent. Neck spaces: The oropharynx, nasopharynx, and pharynx demonstrate no mucosal lesions. The vocal cords, false vocal cords, pyriform sinuses, epiglottis, vallecula, and tongue base all appear normal. Skin thickening and soft tissue inflammation involving the right external auditory canal and the right periarticular soft tissues compatible with otitis externa. Soft tissue swelling causes occlusion of the right external auditory canal. No abscess identified. No osseous erosions associated with the right otitis externa. Glands: The parotid and submandibular glands appear normal. Thyroid gland contains a 5 millimeter calcification in the right lobe. Miscellaneous: Visualized brain and orbits appear normal. Lung apices appear clear. Superficial soft tissues appear normal. Bones: No suspicious bony lesions. Spine degenerative disc disease and facet arthropathy. Visualized sinuses and mastoids appear unremarkable. IMPRESSION: 1. Right otitis externa. 2. No abscess. 3. No lacie evidence of osteomyelitis. CT imaging can be insensitive to osteomyelitis during the initial 15 days of the disease process. If there is clinical concern for osteomyelitis, then three-phase nuclear medicine bone scan or MRI should be considered for further evaluation. Dictated by: Tracy Carl MD, PhD on 06/02/2021 at 7:45 Approved by: Tracy Carl MD, PhD on 06/02/2021 at 7:51
[2021-06-02] MEDS: CEFEPIME 2 GM in SODIUM CHLORIDE 0.9% 100 ML 200 ML IV (01:45)
[2021-06-02] MEDS: MORPHINE 4 MG/ML INJ IV (01:45)
[2021-06-02 02:10] LABS: Add Manual Diff / Slide Review NO; Basophils Absolute Auto 0 /uL (0-100); Basophils Percent Auto 0.2 % (0-2); Eosinophils Absolute Auto 0 /uL (0-450); Eosinophils Percent Auto 0.3 % (2-4); Hematocrit 46.8 % (41-53); Hemoglobin 16.4 g/dL (13.5-17.5); Lymphocytes Absolute Auto 700 /uL (1100-4500); Lymphocytes Percent Auto 11.1 % (25-40); Mean Corpuscular Hemoglobin 31.6 PG (26-34); Mean Corpuscular Volume 90.3 fL (80-100); Monocytes Absolute Auto 1900 /uL (0-900); Monocytes Percent Auto 28.3 % (3-14); Neutrophils Absolute Auto 4000 /uL (1500-7000); Neutrophils Percent Auto 60.1 % (50-75); Platelet Count 64 X10^3/uL (150-400); Red Blood Cell Count 5.19 X10^6/uL (4.5-5.9); Red Cell Distribution Width 12.1 % (11.6-14.8); White Blood Cell Count 6.6 X10^3/uL (4.5-11.0)
[2021-06-02 02:32] LABS: Procalcitonin 0.11 ng/mL (<0.5)
[2021-06-02 02:34] LABS: BUN Creatinine Ratio 13.4 (6-22); Blood Urea Nitrogen 13 mg/dL (9-20); Calcium 9.9 mg/dL (8.4-10.2); Carbon Dioxide 28 mmol/L (22-32); Chloride 103 mmol/L (98-107); Estimated Glomerular Filt Rate > 60.0 mL/min (>60); Glucose 127 mg/dL (80-110); HEMOLYSIS < 15 (0-50); Potassium 4.1 mmol/L (3.4-5.1); Sodium 139 mmol/L (137-145)
[2021-06-02] MEDS: HYDROMORPHONE 1 MG INJ IV ×3 (02:54→08:02)
[2021-06-02] MEDS: KETOROLAC 30 MG/ML VIAL IV (03:43)
[2021-06-02] MEDS: CIPROFLOXACIN 400 MG/200 ML PIGGYBACK 200 MG IV (07:49)
== END 2021-06-02 09:40 | disposition home or self-care (01) ==
PROVIDERS: Emergency Medicine; Emergency Provider Emergency Medicine; PCP Physician Assistant Medical
DX: H60.91 Unspecified otitis externa, right ear (principal); H60.01 Abscess of right external ear; Z79.2 Long term (current) use of antibiotics
CPT/HCPCS: 70491; 80048; 84145; 85025; 87040; 96365; 96367; 96375; 96376; 99284; J0692; J0744; J1170; J1885; J2270; Q9967